=== PATIENT | male | born 1995 | race Two or more races ===

== ENCOUNTER 2023-03-28 20:35 | Emergency (ER) | payer SELFPAY ==
[~2023-03-28] VITALS: Ht 180.3 cm; Wt 104.3 kg
[2023-03-28 21:45] LABS: Basophils # (auto) 0.1 10 ^3/uL (0-0.2); Basophils % (auto) 1.3 % (0.0-2.0); Eosinophils # (auto) 0.6 10 ^3/uL (0-0.8); Eosinophils % (auto) 8.3 % (0.0-7.0); Hematocrit 44.7 % (41.0-53.0); Hemoglobin 15.2 g/dL (13.5-17.5); Lymphocytes # (auto) 1.9 10 ^3/uL (0.4-5.4); Lymphocytes % (auto) 27.4 % (10.0-50.0); Mean Corpuscular Hemoglobin 30.5 pg (28.0-32.0); Mean Corpuscular Hgb Conc. 33.9 g/dL (32.0-36.0); Mean Corpuscular Volume 89.7 fL (80.0-100.0); Monocytes # (auto) 0.5 10 ^3/uL (0-1.3); Monocytes % (auto) 7.1 % (0.0-12.0); Neutrophils # (auto) 3.9 10 ^3/uL (1.6-8.6); Neutrophils % (auto) 55.9 % (37.0-80.0); Nucleated Red Blood Cells % 0.1 %; Red Blood Cells 4.98 10^6/uL (4.5-5.90); Red Cell Distribution Width 16.3 % (11.8-14.3)
[2023-03-28 22:10] LABS: Acetaminophen < 2.0 UG/ML (10.0-20.0)
[2023-03-28 22:11] LABS: Alanine Aminotransferase 30 U/L (7-40); Albumin 4.8 g/dL (3.2-4.8); Alkaline Phosphatase 92 U/L (46-116); Anion Gap 10.1 (5-15); Aspartate Aminotransferase 28 U/L (13-40); BUN/Creatinine Ratio 7.4 (10.0-20.0); Bilirubin, Total 0.2 mg/dL (0.2-1.0); Blood Urea Nitrogen 7 mg/dL (9-23); Calcium 9.4 mg/dL (8.5-10.1); Carbon Dioxide 20.9 mmol/L (20-30); Chloride 109 mmol/L (98-107); Glucose 99 mg/dL (74-106); Potassium 3.9 mmol/L (3.5-5.1); Salicylate < 3.0 mg/dL (2.8-20.0); Sodium 140 mmol/L (136-145); Total Protein 7.7 g/dL (5.7-8.2)
[2023-03-28 22:48] LABS: Blood Alcohol 343.5 mg/dL (<10)
[2023-03-29 04:52] VITALS: BP 119/79; PULSE 91; RESP 18; TEMP 97.9; O2SAT 96
== END 2023-03-29 04:54 | disposition home or self-care (01) ==
LOC: EDBD 20:35 → ER 20:38
DX: F10.129 Alcohol abuse with intoxication, unspecified (principal)
CPT/HCPCS: 36415; 80053; 80320; 80329; 83735; 85025